=== PATIENT | female | born 1940 | race Caucasian/White ===

== ENCOUNTER → 2019-09-07 13:52 | Outpatient (BNVA) | payer MEDICARE, SELFPAY | PROVIDERS: Family Provider Internal Medicine; Visit Provider Internal Medicine Rheumatology | DX: M11.20 Other chondrocalcinosis, unspecified site (principal); M11.89 Other specified crystal arthropathies, multiple sites; Z79.899 Other long term (current) drug therapy; M35.01 Sjogren syndrome with keratoconjunctivitis; M15.0 Primary generalized (osteo)arthritis; J44.9 Chronic obstructive pulmonary disease, unspecified; Z87.891 Personal history of nicotine dependence; M79.7 Fibromyalgia | CPT/HCPCS: 99214 ==

== ENCOUNTER 2020-06-21 15:45 | Outpatient (CLI) | payer MEDICARE, SELFPAY ==
[2020-06-21 17:12] LABS: Estmated Average Glucose 131; Hemoglobin A1C 6.2 % (4.0-6.0)
== END 2020-06-21 15:46 | disposition home or self-care (01) ==
PROVIDERS: Visit Provider Internal Medicine
DX: I10 Essential (primary) hypertension (principal); J44.9 Chronic obstructive pulmonary disease, unspecified; E11.9 Type 2 diabetes mellitus without complications
CPT/HCPCS: 80048; 80061; 83036; 84450

== ENCOUNTER 2020-07-24 16:06 | Outpatient (CLI) | payer MEDICARE, SELFPAY ==
[2020-07-24 16:43] LABS: Anion Gap 14.8 (5-19); Aspartate Amino Transferase 18 U/L (0-32); Blood Urea Nitrogen 13 mg/dL (8-23); Calcium 9.9 mg/dL (8.5-10.5); Carbon Dioxide 31 mmol/L (22-29); Chloride 94 mmol/L (98-107); Chol HDL Ratio 3.12 mg/dL (0.0-4.40); Cholesterol 253 mg/dL (0-200); Glucose 178 mg/dL (65-115); HDL Cholesterol 81 mg/dL (60-100); LDL Cholesterol Calculated 134 mg/dL (50-129); LDL HDL Ratio 1.65 RATIO (0.00-3.22); Osmolality Calculated 285 mOsm/kg (285-295); Potassium 4.8 mmol/L (3.5-5.1); Sodium 135 mmol/L (136-145); Triglycerides 191 mg/dL (0-150)
== END 2020-07-24 16:07 | disposition home or self-care (01) ==
LOC: LAB 16:11
PROVIDERS: Visit Provider Internal Medicine
DX: I10 Essential (primary) hypertension (principal); J44.9 Chronic obstructive pulmonary disease, unspecified
CPT/HCPCS: 80048; 80061; 84450

== ENCOUNTER 2020-10-30 15:23 | Outpatient (CLI) | payer MEDICARE, SELFPAY ==
[2020-10-30 16:14] LABS: Basophils # 0.1 10^3/uL (0.0-0.1); Basophils % 0.7 %; Eosinophils # 0.1 10^3/uL (0.0-0.8); Eosinophils % 1.3 %; Hematocrit 46.2 % (37.0-47.0); Hemoglobin 15.4 g/dL (11.5-15.3); Lymphocytes % 9.4 %; Mean Corpuscular HGB Conc 33.3 g/dL (30.0-36.0); Mean Corpuscular Volume 98.9 fL (81-99); Monocytes # 0.4 10^3/uL (0.2-0.9); Monocytes % 3.8 %; Neutrophils # 8.86 10^3/uL (1.8-7.7); Neutrophils % 84.6 %; Nucleated Red Blood Cells % 0 %; Platelet Count 287 10^3/cmm (130-400); Red Blood Count 4.67 10^6/uL (4.1-5.3); Red Cell Distribution Width 11.4 % (12.1-15.1); White Blood Count 10.5 10^3/uL (4.0-10.0)
[2020-10-30 16:26] LABS: Add Urine Microscopic? YES; Bilirubin Urine Neg (Negative); Blood Urine Neg (Negative); Glucose Urine UA Norm (Normal); Ketones Urine Negative (Negative); Leukocyte Esterase Urine 2+ (Negative); Nitrate Urine Negative (Negative); Protein Urine Trace (Negative); Specific Gravity, Urine 1.005 (1.005-1.030); Urine Appearance SL Hazy (CLEAR); Urine Color Yellow (Yellow); Urobilinogen Urine Norm (Negative); pH Urine 7 (5-7)
[2020-10-30 16:28] LABS: Add Urine Culture? No; Bacteria Urine 1+ /hpf; WBC Urine 15-25 /hpf (0-5)
[2020-10-30 16:52] LABS: Estmated Average Glucose 134; Hemoglobin A1C 6.3 % (4.0-6.0)
== END 2020-10-30 15:24 | disposition home or self-care (01) ==
PROVIDERS: Visit Provider Family Medicine
DX: E11.9 Type 2 diabetes mellitus without complications (principal); R53.83 Other fatigue; I10 Essential (primary) hypertension; E78.5 Hyperlipidemia, unspecified
CPT/HCPCS: 81001; 83036; 85025

== ENCOUNTER 2020-11-08 10:13 | Outpatient (CLI) | payer MEDICARE, SELFPAY ==
[2020-11-09 10:44] LABS: Anion Gap 17.4 (5-19); Blood Urea Nitrogen 12 mg/dL (8-23); Calcium 9.4 mg/dL (8.5-10.5); Carbon Dioxide 27 mmol/L (22-29); Chloride 96 mmol/L (98-107); Glucose 142 mg/dL (65-115); Osmolality Calculated 284 mOsm/kg (285-295); Potassium 4.4 mmol/L (3.5-5.1); Sodium 136 mmol/L (136-145)
== END 2020-11-08 10:14 | disposition home or self-care (01) ==
LOC: LAB 11-09 10:15
PROVIDERS: Visit Provider Family Medicine
DX: I10 Essential (primary) hypertension (principal); E11.9 Type 2 diabetes mellitus without complications; R53.83 Other fatigue
CPT/HCPCS: 80048